=== PATIENT | male | born 1955 ===

== ENCOUNTER 2021-04-30 05:30 | Day surgery (SDC) | payer OTHER ==
[~2021-04-30 05:30] MED LIST: DUTOPROL 100-11 EACH
[2021-04-30] MEDS ORDERED: COLACE100 MG PO (08:06)
[2021-04-30] MEDS ORDERED: NEURONTIN300 MG PO (08:06)
[2021-04-30] MEDS ORDERED: PERCOCET 5-3251 EACH PO (08:06)
== END 2021-04-30 13:10 | disposition home or self-care (01) ==
LOC: CIR.AMB 05:30
PROVIDERS: ATTEND Surgery
DX: D12.9 Benign neoplasm of anus and anal canal (principal); K64.8 Other hemorrhoids; K64.4 Residual hemorrhoidal skin tags; Z20.822 Contact with and (suspected) exposure to COVID-19